=== PATIENT | male | born 1980 | race Two or more races ===

== ENCOUNTER 2020-10-16 15:28 | Emergency (ER) | payer SELFPAY ==
[~2020-10-16] VITALS: Ht 172.7 cm; Wt 90.7 kg
[2020-10-16] MEDS ORDERED: TETANUS-DIPTH-ACEL PERTUSSIS 0.5ML SYR Tdap IM ONE (17:15)
[2020-10-16 19:45] VITALS: BP 111/84
== END 2020-10-16 20:34 ==
LOC: ER 15:28
DX: S16.1XXA Strain of muscle, fascia and tendon at neck level, initial encounter (principal); S00.03XA Contusion of scalp, initial encounter; S20.212A Contusion of left front wall of thorax, initial encounter; S50.12XA Contusion of left forearm, initial encounter; I10 Essential (primary) hypertension; X58.XXXA Exposure to other specified factors, initial encounter; Y93.89 Activity, other specified; Y92.89 Other specified places as the place of occurrence of the external cause; Y99.8 Other external cause status
CPT/HCPCS: 70450; 71250; 72125; 73090; 90471; 90715; 93005

== ENCOUNTER 2023-05-30 11:39 | Emergency (ER) | payer OTHER ==
[~2023-05-30] VITALS: Ht 172.7 cm; Wt 97.5 kg
[2023-05-30 11:39] VITALS: BP 155/102; RESP 16; O2SAT 96
[2023-05-30 11:55] VITALS: PULSE 67
[2023-05-30] MEDS ORDERED: ONDANSETRON HCL 4 MG/2 ML VIAL IV ONE (12:00)
== END 2023-05-30 13:41 | disposition left against medical advice (07) ==
LOC: ER 11:39
DX: R51.9 Headache, unspecified (principal); R42 Dizziness and giddiness; Z53.21 Procedure and treatment not carried out due to patient leaving prior to being seen by health care provider
CPT/HCPCS: 70450; 72125; 93005; 96374; 99281; J2405

== ENCOUNTER 2023-05-31 07:51 | Emergency (ER) | payer OTHER ==
[~2023-05-31] VITALS: Ht 172.7 cm; Wt 98.6 kg
[2023-05-31 08:43] VITALS: BP 153/98; PULSE 70; RESP 16; TEMP 97.7; O2SAT 96
== END 2023-05-31 09:21 | disposition home or self-care (01) ==
LOC: ER 07:51
DX: S06.899D Other specified intracranial injury with loss of consciousness of unspecified duration, subsequent encounter (principal); M54.2 Cervicalgia; I10 Essential (primary) hypertension; X58.XXXD Exposure to other specified factors, subsequent encounter